=== PATIENT | female | born 1985 | race Caucasian/White ===

== ENCOUNTER → 2018-04-12 15:40 | Outpatient (CLI) | payer OTHER, SELFPAY ==
[2018-04-19 08:13] LABS: HPV HC, High Risk Negative (Negative)
[2018-04-19 08:29] LABS: HPV Reflexed? YES, CHARGE PATIENT
== END ==
PROVIDERS: Visit Provider Obstetrics & Gynecology
DX: Z12.4 Encounter for screening for malignant neoplasm of cervix (principal)
CPT/HCPCS: 87624; 88175; G0145

== ENCOUNTER → 2019-06-19 17:21 | Outpatient (CLI) | payer OTHER, SELFPAY ==
[2019-06-19 20:53] LABS: Chlamydia Trachomatis by PCR Negative (Negative); Neisserai gonorrhoeae by PCR Negative (Negative); Probe Check PASS; Sample Adequacy Control PASS; Specimen Processing Control PASS
== END ==
PROVIDERS: Referring Provider Obstetrics & Gynecology; Visit Provider Obstetrics & Gynecology
DX: Z11.3 Encounter for screening for infections with a predominantly sexual mode of transmission (principal)
CPT/HCPCS: 87491; 87591

== ENCOUNTER 2020-12-31 12:04 | Outpatient (RCR) | payer OTHER, SELFPAY | END 2021-03-08 23:59 | LOC: IMMUN 12:04 | PROVIDERS: Visit Provider Family Medicine | DX: Z23 Encounter for immunization (principal) | CPT/HCPCS: 0001A; 0002A; 91300 ==

== ENCOUNTER → 2022-10-10 | Outpatient (CLI) | payer OTHER, SELFPAY ==
[2022-10-10 13:49] LABS: Hematocrit 40.3 % (37-47); Hemoglobin 14.7 g/dL (12.0-15.0); Mean Corp Hgb Conc 36.5 g/dL (32-36); Mean Corpuscular Hgb 31.9 pg (27.0-32.0); Mean Corpuscular Volume 87.4 fL (81-99); Mean Platelet Vol. 9.6 fl (6.2-12.0); Platelet Count 243 K/mm3 (150-450); RBC Distribution Width CV 11.9 % (11.6-14.6); RBC Distribution Width SD 37.4 fl (35.1-43.9); Red Blood Count 4.61 M/mm3 (4.2-5.4); White Blood Count 8.9 K/mm3 (4.4-11.0)
[2022-10-10 14:25] LABS: Estradiol 233.3 pg/mL; Follicle Stimulating Hormone 9.4 mIU/mL; Luteinizing Hormone 35.2 mIU/mL; Prolactin 9.4 ng/mL; T4 Free Direct 0.93 ng/dL (0.76-1.46); Thyroid Stim Hormone (TSH) 2.68 uIU/mL (0.358-3.74)
[2022-10-13 15:22] LABS: HPV APTIMA, High Risk Negative (Negative)
== END | disposition home or self-care (01) ==
LOC: WOBLAB 13:35
PROVIDERS: Visit Provider Student in an Organized Health Care Education/Training Program
DX: Z12.4 Encounter for screening for malignant neoplasm of cervix (principal); N93.9 Abnormal uterine and vaginal bleeding, unspecified
CPT/HCPCS: 36415; 82670; 83001; 83002; 84146; 84439; 84443; 85027; 87624; 88175; G0145

== ENCOUNTER 2023-03-08 05:26 | Day surgery (SDC) | payer OTHER, SELFPAY ==
[2023-03-05 11:58] LABS: Hematocrit 41.6 % (37-47); Hemoglobin 14.2 g/dL (12.0-15.0); Mean Corp Hgb Conc 34.1 g/dL (32-36); Mean Corpuscular Hgb 30.3 pg (27.0-32.0); Mean Corpuscular Volume 88.7 fL (81-99); Mean Platelet Vol. 10.5 fl (6.2-12.0); Platelet Count 231 K/mm3 (150-450); RBC Distribution Width CV 12.2 % (11.6-14.6); RBC Distribution Width SD 39.1 fl (35.1-43.9); Red Blood Count 4.69 M/mm3 (4.2-5.4); White Blood Count 7.9 K/mm3 (4.4-11.0)
[2023-03-08] VITALS (11 sets, daily range): BP systolic 108–133; BP diastolic 68–88; PULSE 66–95; RESP 16–20; TEMP 36.2–36.8; O2SAT 95–100; BMI 36.0
[2023-03-08] MEDS: Lactated Ringers 1,000 ML 40 ML IV (06:05)
[2023-03-08] MEDS: dexAMETHasone 4 MG/ML Vial 8 MG IV (06:10)
[2023-03-08 06:23] LABS: Internal QC Validated? YES +Cl - CLEAR BKGD; Pregnancy, Urine Negative Negative
[2023-03-08] MEDS: Gabapentin 600 MG Tablet PO (06:26)
[2023-03-08] MEDS: Acetaminophen 500 MG Tablet 1000 MG PO ×2 (06:27→15:18)
[2023-03-08] MEDS: Magnesium 1 GM over 15 mins IV (06:52)
--- NOTE | 2023-03-08 06:53 | PCM.HP.BLA ---
History and Physical Date of Admission: 03/08/23 HPI: 37-year-old female plan for robotic assisted total laparoscopic hysterectomy, bilateral salpingectomy, cystoscopy for abnormal uterine bleeding. Denies headache or vision changes, chest pain or shortness of breath, nausea or vomiting, diarrhea constipation, fevers or chills. TECHNICAL SERVICES SPECIALIST history: , prior section Medical history: 1. Class II obesity 2. Depression 3. Asthma Surgical history: 1. section 2. Ingrown toenail removal Medications: 1. Zoloft 150 mg daily 2. Albuterol inhaler as needed Allergies: No known drug allergies Family history: Denies history of blood clots or bleeding disorders, noncontributory Social history: Denies tobacco, alcohol, drug use Review of system: Negative otherwise stated above Physical exam: Blood pressure 121/68, heart rate 80, respiratory rate 16, temp 98.2 ?F, oxygen saturation 98% on room air General: No acute distress HEENT: Normal cephalic/atraumatic, PERRLA Cardiac: Regular rate and rhythm Respiratory: Clear to auscultation bilaterally Abdomen: Soft, nontender Extremities no edema Neurologic: Cranial nerves II through XII grossly intact, no focal deficits Musculoskeletal: Moves all extremities equally Assessment and plan: 37-year-old female plan for robotic assisted total laparoscopic hysterectomy, bilateral salpingectomy, cystoscopy for abnormal uterine bleeding all risk, benefits, alternatives discussed the patient. Risk clued are not limited to: Risk of bleeding the point of transfusion, infection, injury to surrounding tissue including bowel/bladder potentially requiring prolonged Arias catheter use/major abdominal vessels, VTE, ICU admission. Patient aware and consented.
--- NOTE | 2023-03-08 06:57 | OP.PCM_ITS ---
Report of Operation Date of Procedure: 03/08/23 Pre-Operative Diagnosis: Abnormal uterine bleeding Post-Operative Diagnosis: Abnormal uterine bleeding Surgery/Procedure Performed:: Robotic assisted total laparoscopic hysterectomy, bilateral salpingectomy, cystoscopy Description of Surgical Findings:: Normal-appearing external genitalia. Moderate uterine senses. Small cervix. Corea shaped uterus. Bilateral normally appearing ovaries and fallopian tubes. Large and redundant bladder. Surgeon: Chrissy Ascencio hydraulic jack mechanic: Nikhil Flores Type of Anesthesia: General Specimen's removed: uterus, bilateral fallopian tubes, cervix Estimated Blood Loss (mL): 50 cc Fluids Replaced: 1200cc Description of Procedure: Indications/Risks/Benefits: 37-year-old female plan for robotic assisted total laparoscopic hysterectomy, bilateral salpingectomy, cystoscopy for abnormal uterine bleeding. All risk, benefits, alternatives discussed the patient.? Risk include, are not limited to: Risk of bleeding the point of transfusion, infection, injury to surrounding tissue including bowel/bladder potentially requiring prolonged Arias catheter use/major abdominal vessels, VTE, ICU admission.? Patient aware and consented. Procedure: Patient taken to the operating room and placed under general anesthesia. Patient placed in the dorsal lithotomy position and prepped and draped in usual sterile fashion. Arias catheter placed. Weighted speculum placed in the posterior vagina and right angle retractor used to visualize the cervix. Anterior lip of the cervix grasped with single-tooth tenaculum. Cervix sequentially dilated and sounded to 11 cm. [id number] stitches placed at the 3 and 9 o'clock position. Small uterine manipulator placed. Gloves were changed and attention turned to the anterior abdominal wall. Supraumbilical incision made with scalpel and trocar placed under direct visualization. Abdomen insufflated. Upon being placed in max Trendelenburg, the patient's heart rate dropped. Insufflation was stopped and gas released, patient flattened. Heart rate recovered immediately. Patient then first replaced into max Trendelenburg, heart rate stable. Insufflation restarted, remained stable. After a few minutes it lowered slightly, bradycardia was treated by anesthesia and remained stable throughout the rest of the case. Right and left lower quadrant trocars placed under direct visualization. Left upper quadrant trocar placed at Villalpando's point and direct visualization. Supraumbilical trocar replaced with robotic trocar. Robot docked. Bilateral fallopian tubes identified and removed along the mesosalpinx using bipolar cautery and sharp dissection. Fallopian tubes were enlarged in size and therefore were placed in the posterior cul-de-sac for removal after hysterectomy. Bilateral ureters identified. Right utero-ovarian ligament coagulated and cut. Right round ligament coagulated and cut. Vesicouterine peritoneum dissected, creating a bladder flap towards the midline. Right uterine arteries skeletonized using sharp and blunt dissection. Left utero ovarian ligament coagulated and cut. Left round ligament coagulated and cut. Uterus retroverted and vesicouterine peritoneum on the left side identified and carried towards midline. Bladder flap completed, allowing bladder to fall away from the anterior uterus and cervix. Left uterine arteries skeletonized. Right uterine artery coagulated an d cut perpendicular then parallel to the cervix, allowing the uterine arteries to fall away from the cervix. Uterus anteverted and posterior colpotomy started. This was carried counterclockwise to towards the patient's right. Dissection of the left uterine arteries was completed perpendicular and then parallel to the cervix. Along the left uterine arteries to fall away from the cervix. Anterior colpotomy completed. Colpotomy completed circumferentially. Uterus removed through the vagina. Bilateral fallopian tube grasped with a ring forceps through the vagina and removed. Colpotomy closed with a running stitch using V-Loc suture. Pelvis irrigated. Abdominal pressure decreased to 7 mmHg and cystoscopy completed. Arias catheter removed and cystoscope placed through the urethra. Cystoscopy noted intact bladder dome and bilateral ureteral jets. Bladder drained. Abdomen desufflated. Robot undocked and trocars removed. Skin closed with subcuticular stitch and skin glue. At the end of the procedure all needle, lap, sponge counts were correct. UOP: 350cc clear urine Complications None
--- NOTE | 2023-03-08 06:57 | DCINST_ITS ---
Discharge Instructions Diet Discharge Diet: No restrictions Activity Discharge Activity: Return to Normal Activity and May Shower May resume sexual activity in: 6 weeks Weight Bearing Status: Weight bearing as tolerated Dressing / Incision Call your doctor if your incision/area has: Continuous Slow Oozing, Increased Redness and Foul Smelling Discharge Call your doctor if you observe: Fever of 101 or Higher, Inability to urinate, Inability to have a bowel movement, Using more than 1 pad per hour, Shortness of breath, Swelling in the ankles, Chest pain and Uncontrolled pain Cleanse incision/area with: Soap & Water and Keep Dressing Clean & Dry Follow Up Care Please Follow Up With: Chrissy Ascencio DO When: 2 weeks post operative appointment Test Results: Test results from this visit will be discussed in further detail at your follow- up appointment, if applicable. Discharge Plan Admission Primary Reason for Your Visit: Hysterectomy Attending Provider: Chrissy Ascencio Primary Care Provider: Crys Perez NP Discharge Orders/Prescriptions Prescriptions: New oxycodone 5 mg tablet 5 mg PO Q6H PRN (Reason: pain (scale score 7-10)) 5 Days Qty: 20 0RF Continued multivitamin Tablet 1 tab PO DAILY sertraline 100 mg tablet 150 mg PO DAILY albuterol sulfate 90 mcg/actuation Hfa Aerosol Inhaler 1 inh INHALATION Q6H PRN (Reason: ALLERGIES) Referrals / Follow Up: Crys Perez NP, QUILL PICKING MACHINE OPERATOR-C [Primary Care Provider] - Disposition Disposition (needs filled in before D/C Order can be placed): Home, Self Care
--- NOTE | 2023-03-08 07:30 | HYST_PTH ---
PATIENT: MERLINE BEYER LOC: [facility] [place] U#:[id number] AGE/SX: 37/F ROOM: RE03/08/[address]: Dr. Chrissy Ascencio DO : 1985 BED: DIS: 03/08/2023 SPEC #: [id number] RECD: 03/08/23 12:47 STATUS: FELICITY REGiulia #: [id number] YASMIN: 03/08/23 07:[address]: Chrissy Ascencio DEPT: SURGICAL PATHOLOGY RECD BY: Poppy Rubio ENTERED: 03/08/23 13:03 SP TYPE: HYSTERECT OTHR DR: Merline Perez, RIGGING SUPERVISOR-C Tissues: Uterus, NOS Procedures: Surgery Specimen Level V HEADER OPERATION: ERAS, lap robotic hysterectomy, bilateral salpingectomy PRE-OP DIAGNOSIS: Abnormal uterine bleeding TISSUE SUBMITTED: Uterus, cervix and bilateral fallopian tubes MICROSCOPIC DIAGNOSIS Uterus, cervix, bilateral fallopian tubes, hysterectomy and bilateral salpingectomy: Cervix - no pathologic diagnosis. Endometrium ? secretory endometrium. Myometrium ? adenomyosis. Bilateral fallopian tubes - no pathologic diagnosis. Bilateral paratubal cysts. See comment. 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 MICROSCOPIC DESCRIPTION Slides are reviewed. GROSS DESCRIPTION Received in fixative is one container labeled with the patient's name and designated uterus, cervix and bilateral fallopian tubes. The specimen consists of a hysterectomy specimen consisting of uterus with cervix and detached bilateral fallopian tubes. The uterus with cervix weighs 107 gm and measures 9.8 x 8.0 x 4.5 cm. The serosal surface is ragged. The ectocervical mucosa is unremarkable. The external os is slit-like in contour. The endocervical canal measures 3.0 cm in length and the endocervical mucosa is ng, glistening and unremarkable. The endometrial cavity is bicornuate and measures 6.0 cm in length and 1.0 cm in width. The endometrium is ng, glistening without any mass lesion and measures 0.1 cm in thickness. Sections of the uterine wall do not reveal mass lesion and measures up to 2.0 cm in width. The fallopian tubes are not identified as right or left. One fallopian tube measures 7.5 cm in length and up to 0.7 cm in diameter. The fimbrial end is identified. A paratubal cyst is present measuring 0.7 cm in greatest dimension. Sections reveal unremarkable cut surfaces. The second fallopian tube measures 6.0 cm in length and 0.5 cm in diameter. The fimbrial end is identified. Sections reveal unremarkable cut surfaces. Two paratubal cysts are noted measuring 0.8 and 1.5 cm in greatest dimension. Medical Appointment Scheduler sections are submitted in ten cassettes as follows: 1 - anterior cervix, 2 - posterior cervix, 3-5 - anterior uterine wall including endometrium, 6-8 - posterior uterine wall including endometrium (Endometrium for both cornu are submitted), 9 ? one fallopian tube and paratubal cysts, 10 - second fallopian tube and paratubal cysts. / SJ:juancarlos 03/08/2023 TC:5 CPT: 81270
[2023-03-08] MEDS: Cefazolin 2 GM in 0.9% Normal Saline 100 ML IV (07:36)
[2023-03-08] MEDS: HYDROcodone Bitartrate/Apap 5/325 Tablet PO (12:38)
== END 2023-03-08 15:42 | disposition home or self-care (01) ==
LOC: SDC 05:31 → AC 05:31
PROVIDERS: Anesthesiology; PCP Nurse Practitioner Primary Care; Referring Provider Student in an Organized Health Care Education/Training Program; Visit Provider Student in an Organized Health Care Education/Training Program
PROC: 0UT90ZZ Resection of Uterus, Open Approach (ICD-10-PCS; CPT 58571; principal; 2023-03-08 07:10)
DX: N93.9 Abnormal uterine and vaginal bleeding, unspecified (principal); J45.909 Unspecified asthma, uncomplicated; F41.9 Anxiety disorder, unspecified; F32.A Depression, unspecified
CPT/HCPCS: 58571; 52000; S2900; 00840; 36415; 81025; 83735; 85027; 86850; 86900; 86901; 88307; J7120; J2405; J3475